=== PATIENT | male | born 1945 | race Two or more races ===

== ENCOUNTER 2018-10-26 08:36 | Outpatient (CLI) | payer OTHER | END 2018-10-26 08:52 | disposition home or self-care (01) | LOC: NUCLEAR 08:36 | DX: I20.9 Angina pectoris, unspecified (principal); R94.31 Abnormal electrocardiogram [ECG] [EKG]; R26.2 Difficulty in walking, not elsewhere classified | CPT/HCPCS: 78452; 93017; A9500; J0153 ==